=== PATIENT | female | born 1970 | race Caucasian/White ===

== ENCOUNTER 2017-02-28 12:01 | Emergency (ER) | payer SELFPAY ==
[~2017-02-28] VITALS: Ht 157.5 cm; Wt 104.3 kg
[~2017-02-28 12:01] MED LIST: ALBU.083IS IH; ALBU90OI INH; ALBU90OI6 INH; BENA20 PO; BENZ100A PO; CEPH500 PO; CITA20 PO; CLIN300 PO; CODACE30 PO; CODGUAEL PO; DIPH50 PO; ERYT333ERA PO; ESOM20 PO; GUAI600T33 PO; HYDACE5 PO; HYDACE5325 PO; HYDR1TAB94 PO; IBUP200; IBUP600 PO; MUPI2TO TOP; Monodox100 MG PO; NAPR500 PO; NAPR550 PO; ONDA4ODT MM; PERM5TC TOP; PRED20 PO; Prednisone20 MG PO; RXCLIN PO; RXCODACET PO; RXONDA4ODT MM; SULTRIDS PO; TRAM50 PO; [UNRECOGNIZED DRUG - OTHER]
[2017-02-28 16:32] LABS: BASOPHILS ABSOLUTE AUTO 0.06 K/mm3 (0.00-0.23); BASOPHILS PERCENT AUTO 1 % (0-2); EOSINOPHILS ABSOLUTE AUTO 0.14 K/mm3 (0.00-0.68); EOSINOPHILS PERCENT AUTO 1 % (0-6); Hematocrit 52.7 % (33.0-51.0); Hemoglobin 17.1 g/dL (11.5-16.0); IMMATURE GRAN ABSOLUTE AUTO 0.03 K/mm3 (0.00-0.10); IMMATURE GRAN PERCENT AUTO 0 % (0-1); LYMPHOCYTES ABSOLUTE AUTO 2.65 K/mm3 (0.84-5.20); LYMPHOCYTES PERCENT AUTO 27 % (21-46); MONOCYTES ABSOLUTE AUTO 0.45 K/mm3 (0.16-1.47); MONOCYTES PERCENT AUTO 5 % (4-13); Mean Corpuscular HGB 30.5 pg (26.0-34.0); Mean Corpuscular HGB Conc 32.4 g/dL (31.5-36.5); Mean Corpuscular Volume 94 fL (80-100); NEUTROPHILS ABSOLUTE AUTO 6.67 K/mm3 (1.96-9.15); NEUTROPHILS PERCENT AUTO 67 % (41-73); Platelet Count 229 K/mm3 (150-400); RDW Coefficient Variation 13.5 % (11.7-14.2); RDW Standard Deviation 46.7 fL (35.1-46.3); Red Blood Cell Count 5.61 M/mm3 (3.80-5.20)
[2017-02-28 17:06] LABS: Alanine Aminotransfer (ALT/SGP 21 U/L (12-78); Albumin, Blood 3.6 g/dL (3.4-5.0); Albumin/Globulin Ratio 1.1 (0.8-1.8); Alk Phos 81 U/L (50-136); Anion Gap 5 mmol/L (6-16); Aspartate Aminotrans (AST/SGOT 11 U/L (12-37); Bilirubin, Total 0.4 mg/dL (0.1-1.0); Blood Urea Nitrogen 6 mg/dL (8-24); Bun/Creatinine Ratio 9.3 (12.0-20.0); CO2, Blood 30 mmol/L (21-32); Calcium, Blood 9.4 mg/dL (8.5-10.1); Chloride, Blood 107 mmol/L (98-108); Creatinine, Blood 0.64 mg/dL (0.40-1.00); Globulin, Blood 3.2 g/dL (2.2-4.0); Glomerular Filtration Rate >60 (60-); Glucose, Blood 122 mg/dL (70-99); Potassium, Blood 3.7 mmol/L (3.5-5.5); Sodium, Blood 142 mmol/L (136-145); Total Protein, Blood 6.8 g/dL (6.4-8.2)
[2017-02-28 17:51] LABS: Bilirubin, Urine Neg (Neg); Blood, Urine Neg (Neg); Glucose Qualitative, Urine Neg (Neg); Ketones, Urine Neg (Neg); Leukocyte Esterase, Urine Neg (Neg); Nitrite, Urine Neg (Neg); Protein, Urine Neg (Neg); Urobilinogen, Urine NORM (Normal)
[2017-02-28 18:03] LABS: Appearance, Urine Clear (Clear); Color, Urine Pale Yellow (P-Yellow)
== END 2017-02-28 19:30 | disposition short-term general hospital (02) ==
LOC: ER 12:01
PROVIDERS: Physician Assistant
DX: K42.0 Umbilical hernia with obstruction, without gangrene (principal); Z88.5 Allergy status to narcotic agent; Z79.899 Other long term (current) drug therapy; F17.200 Nicotine dependence, unspecified, uncomplicated
CPT/HCPCS: 36415; 74176; 80053; 81003; 81025; 83690; 85025; 99285

== ENCOUNTER → 2017-08-16 | Outpatient (CLI) | payer SELFPAY | LOC: LAB SHORT 17:56 → LAB 17:56 | DX: R82.99 Other abnormal findings in urine (principal) | CPT/HCPCS: 87086 ==

== ENCOUNTER 2018-07-16 10:37 | Emergency (ER) | payer OTHER ==
[~2018-07-16] VITALS: Ht 160 cm; Wt 91.6 kg
[2018-07-16] MEDS ORDERED: HYDR1TAB94 PO (11:50)
[2018-07-16] MEDS ORDERED: IBUP800 PO (11:50)
[2018-07-16] MEDS ORDERED: DOCU100 PO (22:46)
== END 2018-07-16 11:51 | disposition home or self-care (01) ==
LOC: ER 10:37
DX: M16.0 Bilateral primary osteoarthritis of hip (principal); Z88.5 Allergy status to narcotic agent; Z79.899 Other long term (current) drug therapy; F17.200 Nicotine dependence, unspecified, uncomplicated
CPT/HCPCS: 73502; 99283-25

== ENCOUNTER 2018-07-16 14:43 | Inpatient (IN) | payer OTHER ==
[~2018-07-16] VITALS: Ht 157.5 cm; Wt 106.1 kg
[~2018-07-16 14:43] MED LIST changes: +IBUP800 PO
[2018-07-16 15:37] LABS: BASOPHILS ABSOLUTE AUTO 0.08 K/mm3 (0.00-0.23); BASOPHILS PERCENT AUTO 1 % (0-2); EOSINOPHILS ABSOLUTE AUTO 0.07 K/mm3 (0.00-0.68); EOSINOPHILS PERCENT AUTO 1 % (0-6); Hemoglobin 17.6 g/dL (11.5-16.0); IMMATURE GRAN ABSOLUTE AUTO 0.04 K/mm3 (0.00-0.10); IMMATURE GRAN PERCENT AUTO 0 % (0-1); LYMPHOCYTES ABSOLUTE AUTO 1.22 K/mm3 (0.84-5.20); LYMPHOCYTES PERCENT AUTO 11 % (21-46); MONOCYTES ABSOLUTE AUTO 0.37 K/mm3 (0.16-1.47); MONOCYTES PERCENT AUTO 3 % (4-13); Mean Corpuscular HGB 29.9 pg (26.0-34.0); Mean Corpuscular HGB Conc 31.7 g/dL (31.5-36.5); Mean Corpuscular Volume 94 fL (80-100); Mean Platelet Volume 10.1 fL (9.1-12.4); NEUTROPHILS ABSOLUTE AUTO 9.37 K/mm3 (1.96-9.15); NEUTROPHILS PERCENT AUTO 84 % (41-73); Platelet Count 246 K/mm3 (150-400); RDW Coefficient Variation 13.2 % (11.7-14.2); Red Blood Cell Count 5.89 M/mm3 (3.80-5.20); White Blood Cell Count 11.15 K/mm3 (4.00-11.30)
[2018-07-16 15:38] LABS: Hematocrit 55.6 % (33.0-51.0)
[2018-07-16 16:12] LABS: Alanine Aminotransfer (ALT/SGP 19 U/L (12-78); Albumin, Blood 3.6 g/dL (3.4-5.0); Albumin/Globulin Ratio 1.1 (0.8-1.8); Alk Phos 80 U/L (50-136); Anion Gap 5 mmol/L (6-16); Aspartate Aminotrans (AST/SGOT 16 U/L (12-37); Bilirubin, Total 0.6 mg/dL (0.1-1.0); Blood Urea Nitrogen 9 mg/dL (8-24); Bun/Creatinine Ratio 14.5 (12.0-20.0); CO2, Blood 30 mmol/L (21-32); Calcium, Blood 9.3 mg/dL (8.5-10.1); Chloride, Blood 103 mmol/L (98-108); Creatinine, Blood 0.62 mg/dL (0.40-1.00); Globulin, Blood 3.3 g/dL (2.2-4.0); Glomerular Filtration Rate >60 (60-); Glucose, Blood 116 mg/dL (70-99); Potassium, Blood 3.8 mmol/L (3.5-5.5); Sodium, Blood 138 mmol/L (136-145); Total Protein, Blood 6.9 g/dL (6.4-8.2)
[2018-07-16 16:14] LABS: Source, Urine Clean Catch
[2018-07-16 16:18] LABS: Bilirubin, Urine Neg (Neg); Blood, Urine 2+ (Neg); Glucose Qualitative, Urine Neg (Neg); Ketones, Urine 2+ (Neg); Leukocyte Esterase, Urine 1+ (Neg); Nitrite, Urine Neg (Neg); Protein, Urine 2+ (Neg); Urobilinogen, Urine NORM (Normal)
[2018-07-16 16:27] LABS: Color, Urine Yellow (P-Yellow)
[2018-07-16 16:28] LABS: Appearance, Urine Hazy (Clear)
[2018-07-16 16:42] LABS: Squamous Epithelial Cells Mod /hpf (Few)
[2018-07-16 16:44] LABS: Red Blood Cells, Urine 0-2 /hpf (0-2)
[2018-07-16 16:45] LABS: Bacteria Many /hpf
[2018-07-16 16:49] LABS: Mucus Mod (0-Heavy)
[2018-07-16 17:35] LABS: International Normalized Ratio 0.99; Prothrombin Time Results 10.5 Sec (9.7-11.5)
[2018-07-16 17:38] LABS: PCO2 Arterial 66.2 mmHg (35-45); PO2 Arterial 59.2 mmHg (80-100)
[2018-07-16] MEDS ORDERED: DOCU100 PO (22:46)
--- NOTE | 2018-07-17 02:43 | NUR ---
ASSUMED CARE OF PATIENT AT [facility] 2230 FROM [facility] ED RN. PATIENT ARRIVED TO UNIT VIA STRETCHER; TRANSFER WITH SBA FROM ED TO PCU STRETCHER. PATIENT COMPLAINED OF PAIN IN ABDOMEN; MEDICATED PER EMAR. ADMISSION COMPLETE. PATIENT AGREED TO NG TUBE PLACEMENT; 400 OF CLEAR LIQUID OUTPUT WITH BROWN SMALL CHUNKS NOTED; PATIENT COULD NOT TOLERATE; REMOVED WITHIN MINUTES; IVF INFUSING PER ORDER. PATIENT DENIES NUMBNESS, TINGLING, DIZZINESS AND NAUSEA; ORDER FOR N/V NG PLACEMENT; PATIENT REPORTS SHE CANNOT TOLERATE RIGHT NOW. PATIENT REPORTS SHE FELT THIS WAY BEFORE AND WITHIN A FEW DAYS SHE FELT BETTER. SR/ST ON HEART MONITOR. PATIENT ARRIVED TO UNIT WITH 2LPM VIA NC; BUMPED UP TO 6 DUE TO PATIENT SNORING AND DESATING. PATIENT REPORTS SHE WAS TOLD THAT SHE STOPS BREATHING WHEN SHE IS SLEEPING. PATIENT CURRENTLY RESTING IN BED; CALL LIGHT IN REACH; BED IN LOWEST POSISTION; WILL CONTINUE TO MONITOR AND ASSESS UNTIL END OF SHIFT.
[2018-07-17 03:27] LABS: BASOPHILS ABSOLUTE AUTO 0.05 K/mm3 (0.00-0.23); BASOPHILS PERCENT AUTO 1 % (0-2); EOSINOPHILS ABSOLUTE AUTO 0.05 K/mm3 (0.00-0.68); EOSINOPHILS PERCENT AUTO 1 % (0-6); Hemoglobin 17.5 g/dL (11.5-16.0); IMMATURE GRAN ABSOLUTE AUTO 0.02 K/mm3 (0.00-0.10); IMMATURE GRAN PERCENT AUTO 0 % (0-1); LYMPHOCYTES ABSOLUTE AUTO 1.73 K/mm3 (0.84-5.20); LYMPHOCYTES PERCENT AUTO 17 % (21-46); MONOCYTES ABSOLUTE AUTO 0.58 K/mm3 (0.16-1.47); MONOCYTES PERCENT AUTO 6 % (4-13); Mean Corpuscular HGB 30.5 pg (26.0-34.0); Mean Corpuscular HGB Conc 31.2 g/dL (31.5-36.5); Mean Platelet Volume 10.1 fL (9.1-12.4); NEUTROPHILS ABSOLUTE AUTO 7.81 K/mm3 (1.96-9.15); NEUTROPHILS PERCENT AUTO 76 % (41-73); Platelet Count 232 K/mm3 (150-400); RDW Coefficient Variation 13.2 % (11.7-14.2); RDW Standard Deviation 48.3 fL (35.1-46.3); Red Blood Cell Count 5.74 M/mm3 (3.80-5.20); White Blood Cell Count 10.24 K/mm3 (4.00-11.30)
[2018-07-17 03:33] LABS: PO2 Arterial 67.8 mmHg (80-100); pH Blood Arterial 7.27 (7.35-7.45)
[2018-07-17 03:33] LABS: Hematocrit 56.1 % (33.0-51.0); Mean Corpuscular Volume 98 fL (80-100)
[2018-07-17 03:43] LABS: Anion Gap 2 mmol/L (6-16); Blood Urea Nitrogen 10 mg/dL (8-24); Bun/Creatinine Ratio 16.4 (12.0-20.0); CO2, Blood 34 mmol/L (21-32); Calcium, Blood 8.7 mg/dL (8.5-10.1); Chloride, Blood 106 mmol/L (98-108); Creatinine, Blood 0.61 mg/dL (0.40-1.00); Glomerular Filtration Rate >60 (60-); Glucose, Blood 105 mg/dL (70-99); Potassium, Blood 4.2 mmol/L (3.5-5.5); Sodium, Blood 142 mmol/L (136-145)
--- NOTE | 2018-07-17 07:30 | NUR ---
ASSUMED CARE: PT RESTING QUIETLY, BIPAP IN PLACE. NO FURTHER NEEDS OR CONCERNS AT THIS TIME.
--- NOTE | 2018-07-17 11:39 | NUR ---
PT FELT SHE WAS HAVING AN ALLERGIC REACTION TO LAUNDRY DETERGENT THAT HOSPITAL USES. WELTS AND REDNESS NOTED WITH PT ITCHING. DISCUSSED WITH DR GUILLEN. SEE NEW ORDERS. ALSO STATES HE WANTS TO KEEP HER PCU STATUS DUE TO SEVERE SLEEP APNEA. PT SITTING UPRIGHT IN CHAIR AT THIS TIME. NO FURTHER NEEDS
--- NOTE | 2018-07-17 16:43 | NUR ---
Per admit trigger, I attempted to meet with Altagracia about an Advanced Directive for her. She was very sleppy and told me that she'd already been given the information packet. It was laying on her bedside table. I will remain available.
--- NOTE | 2018-07-17 18:59 | NUR ---
SHIFT SUMMARY: PT MEDICATED MULTIPLE TIMES FOR PAIN THIS SHIFT. ONE ASSIST TO BSC. PLAN IS FOR PT TO REMAIN PCU STATUS UNTIL SLEEP APNEA CAN BE ADDRESSED. TOLERATING CLEAR LIQUID DIET WELL, NO NAUSEA OR VOMITING NOTED THIS SHIFT.
--- NOTE | 2018-07-17 19:40 | NUR ---
ASSUMED CARE OF PT, BEDSIDE REPORT RECEIVED. PT IS ALERT AND ORIENTED, UP TO TOILET WITH STANDBY ASSIST FOR LINE MANAGEMENT. SHE REQUESTS TO BE UP IND IN ROOM HOWEVER IS AGREEABLE TO STANDBY ASSIST AFTER SAFETY CONCERNS ARE DISCUSSED RELATED TO WELDING MACHINE OPERATOR SUBMERGED ARC WIRE, OXYGEN TUBING, AND IV INFUSION. SHE DENIES CP/PRESSURE, DENIES SOB/DYSPNEA, DENIES N/V ALTHOUGH STATES THAT SHE HAS NOT HAD MORE THAN CLEAR LIQUIDS TODAY, SHE STATES THAT SHE IS PASSING FLATUS AND IS HOPEFUL FOR AN ADVANCED DIET IN AM. GAIT IS NOTED STEADY AND PT DENIES DIZZINESS/VERTIGO WITH AMBULATION. LUNGS CLEAR BILAT UPPER, DIM MID TO BASES, SATS MAINTAINING WITH OXYGEN AT 2 L/MIN VIA NC, RESP RATE 20, NO INCREASED WORK OF BREATHING IS NOTED. HRR, SINUS ON MONITOR, RATE 70S, PRESSURE MAINTAINING, PULSES FULL X 4 EXTREMITIES, BRISK CAP REFILL. HYPOACTIVE BOWEL TONES NOTED, ABD FIRM, PT REPORTS 8/10 PAIN, WILL ADMIN NORCO PER ORDERS.
[2018-07-18 04:22] LABS: Anion Gap 2 mmol/L (6-16); Blood Urea Nitrogen 7 mg/dL (8-24); Bun/Creatinine Ratio 14.1 (12.0-20.0); CO2, Blood 33 mmol/L (21-32); Calcium, Blood 8.7 mg/dL (8.5-10.1); Chloride, Blood 105 mmol/L (98-108); Free Thyroxine 1.04 ng/dL (0.70-1.60); Glomerular Filtration Rate >60 (60-); Glucose, Blood 134 mg/dL (70-99); Potassium, Blood 4.6 mmol/L (3.5-5.5); Sodium, Blood 140 mmol/L (136-145)
[2018-07-18 04:25] LABS: Triiodothyronine, Free 1.61 pg/mL (2.18-3.98)
[2018-07-18 05:29] LABS: PCO2 Arterial 64.3 mmHg (35-45); PO2 Arterial 66.1 mmHg (80-100); pH Blood Arterial 7.34 (7.35-7.45)
--- NOTE | 2018-07-18 06:20 | NUR ---
PT AWAKE FREQUENTLY THIS SHIFT, STATES THAT SHE IS HUNGRY, INCREASED PO FLUID INTAKE IS NOTED AND PT CITES HUNGER REASON FOR INTAKE. SHE REQUESTS PAIN MEDS FREQUENTLY EARLY IN SHIFT, NEAR MIDNOC PT WAS NOTED TO APPEAR TO BE ASLEEP AFTER USING CALL LIGHT, SHE STATED THAT SHE WAS INITIALLY REQUESTING PAIN MEDICATION HOWEVER NOTED THAT SHE "FORGOT TO BREATH" DISCUSSED NARCOTIC EFFECT ON RESPIRATORY DRIVE AND PT STATED THAT PAIN MEDS WERE "PROBABLY NOT A GOOD IDEA" ASSISTED PT TO POSITION OF COMFORT. OTHERWISE NO ACUTE CHANGES.
--- NOTE | 2018-07-18 09:00 | NUR ---
INITIAL ASSESSMENT PATIENT RESTING IN BED QUIETLY UPON ENTERING ROOM. PATIENT PLEASANT AND COOPERATIVE. PATIENT ALERT AND ORIENTED X 4, AFEBRILE. PATIENT SBA. PATIENT COMPLAINS THAT SHE HAS BEEN HAVING PAIN IN ABDOMEN. PATIENT SATTING 90% AND GREATER ON 4 L NC. PATIENT HAS MOIST, PRODUCTIVE COUGH- STATES THAT SHE HAS BEEN SWALLOWING THE PHLEGM. EXPIRATORY WHEEZE NOTED IN RUL. SONA CLEAR. LOWER LUNG LOBES DIMINISHED. PATIENT IN SR, HR 70S TO 80S. BP STABLE. ABDOMEN MODERATELY DISTENDED, TENDER, FIRM, WITH HYPOACTIVE BS. PATIENT STATES THAT SHE HAS BEEN HAVING FLATULENCE THIS AM. PATIENT DRINKING QUITE A LOT OF FLUID. PATIENT DENIES NAUSEA. PATIENT STATES THAT SHE "IS VERY HUNGRY". LAST BM REPORTED ON THE 7TH OF THIS MONTH. PATIENT VOIDING YELLOW COLORED URINE INTO TOILET. SKIN IS FLUSHED. RASH NOTED TO LOWER BACK. IVS FLUSHED AND SALINE LOCKED. BED LOW, CALL LIGHT IN REACH. WILL CONTINUE TO MONITOR PATIENT FREQUENTLY THROUGHOUT SHIFT.
--- NOTE | 2018-07-18 12:37 | NUR ---
PATIENT SITTING UP, WATCHING TV UPON ENTERING ROOM. PATIENT HAS NO COMPLAINTS. AFEBRILE. PATIENT DECREASED TO 2 L NC AND REMAINS SATTING 90% AND GREATER. WHEEZES NOTED T/O ALL LUNG LOBES. PATIENT REPORTS THAT SHE IS COUGHING UP A MODERATE AMOUNT OF THICK, WHITE, PHLEGM. PATIENT REMAINS IN SR, HR IN THE 90S. BP STABLE. NO OTHER ACUTE CHANGES TO NOTE ON AT THIS TIME. WILL CONTINUE TO MONITOR.
--- NOTE | 2018-07-18 16:01 | NUR ---
SHIFT SUMMARY PATIENT HAS REMAINED ALERT AND ORIENTED X 4, AFEBRILE. PATIENT HAS RECEIVED PRN PAIN MEDICATIONS FOR COMPLAINT OF PAIN IN ABDOMEN AND R HIP. PATIENT HAS BEEN GETTING AROUND IN ROOM WELL INDEPENDENTLY. PATIENT HAS BEEN SATTING WELL ON 2 L NC. PATIENT HAS REMAINED IN SR, HR MOSTLY 70S TO 90S. BP HAS BEEN STABLE. ABDOMEN HAS REMAINED MODERATELY DISTENDED, FIRM, AND TENDER. PATIENT STATES THAT IT FEELS LIKE HER HERNIA MESH THAT WAS PLACED AT [facility] IS "POKING HER FROM THE INSIDE". PATIENT DID NOT HAVE BM THIS SHIFT BUT REPORTS THAT SHE HAS BEEN HAVING FLATULENCE. PATIENT IS TOLERATING A REGULAR DIET AT THIS TIME. PATIENT VOIDING ADEQUATE AMOUNTS OF YELLOW COLORED URINE INTO TOILET. PATIENT RECEIVED PRN BENADRYL 3 TIMES THIS SHIFT FOR COMPLAINTS OF ITCHING ON HER LOWER BACK. PATIENT RECEIVED SHOWER THIS SHIFT. PATIENT IS TRANSFERRING TO MEDICAL FLOOR, ROOM 355. REPORT HAS BEEN GIVEN TO ASSUMING NURSE.
--- NOTE | 2018-07-18 17:55 | NUR ---
PT AOX4 AND COOPERATIVE OF CARE. MOVED UP TO MEDICAL FLOOR AROUND 1600. PT HAS 2L O2 RUNNING AND STATES SHE IS FEELING MUCH BETTER. PT TREATED FOR PAIN PER EMAR. INDEPENDENT NO DISTRESS NOTED.
--- NOTE | 2018-07-18 20:43 | NUR ---
07/18/181999 PT ON PHONE AND RN HERE TO RECHECK HIGH BP. PT STATES SHE IS TALKING WITH CO-WORKERS "ABOUT WORK". ALSO STATES SHE HAS A NEW DIAGNOSIS OF "SLEEP APNEA". UNFAMILIAR WITH THIS DX. RN WENT THROUGH BASIC DX,CAUSES, CPAP USE AND LONG-TERM DISABILITY. VERBALIZES UNDERSTANDING.
--- NOTE | 2018-07-18 20:48 | NUR ---
07/18/182015 PT C/O LEVEL "9" ABDOMEN/BACK PAIN. BECAME UPSET AT RN WHEN RN CLARIFIED THAT A "9" IS THE WORST PAIN "LIKE IF YOU WERE SHOT". "YOU CANNOT TELL ME WHAT I FEEL LIKE!" RN APOLOGIZED FOR THE MIS-COMMUNICATION AND THAT I DID NOT MEAN TO OFFEND HER. RN INFORMED CHENILLE MACHINE OPERATORLYDIA OF PT'S CONCERNS. MEDS GIVEN PER APR. CHENILLE MACHINE OPERATOR WILL SPEAK WITH HER.
--- NOTE | 2018-07-18 21:53 | NUR ---
07/18/18 Shoshana FREEMAN,APPLIANCE REPAIR TECHNICIAN IN SPEAKING WITH PT. LYDIA STATES SHE WOULD NOT RANK PAIN JUST THAT IT IS "BETTER".
--- NOTE | 2018-07-18 23:46 | NUR ---
07/18/18 2330 Requested benedryl and c/o slight nausea AND ZOFRAN GIVEN ALSO. NO OTHER COMPLAINTS
--- NOTE | 2018-07-19 07:30 | NUR ---
07/19/18 0600 SHIFT EVAL. RT OFFERED TO APPLY CPAP BUT PT DECLINED IT SHE "WAS NOT READY TO SLEEP". CONT. PULSE OXIMETER ON AND O2 FLUCTUATES AROUND 90-92 %. MEDICATED BY DIFFERENT RNS FOR C/O PAIN/ITCHING WITH "BETTER" HER RESPONSE. VITALS STABLE.
--- NOTE | 2018-07-19 09:00 | NUR ---
PT QUITE PLEASANT COOP A/O. DENIES PAIN AT THIS TIME. WILL FOLLOW. H/R REG, NO MURMER NOTED. NO TELE. LUNGS LIGHTLY WHEEZY T/O. ON 2L O2. RESP EASY, UNLABORED. BT HYPO. REPORTS PASSING GAS. STATES NO BM 5 DAYS . VOIDS PER BATHROOM. INDEPENDANT IN ROOM. BED IN LOW POSITION, CALL LITE IN REACH, CALLS APPROP. STATES HAD ISSUES WITH KEERTHI ANTONY. DISCUSSED. STATES SHE MADE PT FEEL LIKE WAS SEEKING PAIN MEDS. WILL PASS TO TOBACCO HANGER. PT PLEASANT COOP AT THIS TIME.
[2018-07-19] MEDS ORDERED: Cytomel5 MCG PO (11:18)
[2018-07-19] MEDS ORDERED: Senna8.6 MG PO (11:19)
--- NOTE | 2018-07-19 19:27 | NUR ---
PT QUITE PLEASANT TODAY. PAIN MANAGED WITH AVAIL MEDS. WAS PLANNING D/C TODAY, BUT UNABLE TO MAKE OXYGEN HAPPEN. NEEDS 2L ELIGIBILITY EXAMINER., 4L WHEN AMBULATING. BATCH FREEZER OPERATOR WORKING ON THIS FOR TOMORROW. DR GUILLEN NOTIFIED. PASSING GAS. DID WALK TO BATHROOM. NO BM YET. NO OTHER CONCERNS AT THIS TIME. BED IN LOW POSITION,C ALL LITE IN REACH. CALLS APPRP
--- NOTE | 2018-07-20 06:18 | NUR ---
SHIFT SUMMARY SLEPT WELL T/O NIGHT. AOX4. REPORTED NAUSEA LAST NIGHT, MEDICATED 1X W/ZOFRAN PER ORDERS. REPORTS PAIN IN R HIP & LLQ ABD MEDICATED 1X W/NORCO PER ORDERS. ABD IS TENDER & FIRM TO PALPATION IN LLQ. THIS SHE STATES "I HAVE THE WORST THROBBING HEADACHE," MEDICATED 1X W/TYLENOL PER ORDERS. LUNGS HAVE EXPIRATORY WHEEZES T/O, ON 2L NC & CPAP @HS. CONTINUOUS PULSE OX RANGING 80-87% ON CPAP W/2L O2 BLEED IN, NOTIFIED RESPIRATORY & THEY CHANGED ADJUSTED SETTINGS, SPO2 NOT INCREASING ABOVE 85% W/10L BLEED IN ON CPAP, NOTIFIED RESPIRATORY & THEY ADJUSTED SETTINGS ON CPAP AGAIN & PT TITRATED DOWN TO 6L O2 ON CPAP W/SPO2 @88-90%. REPORTS PASSING GAS, NO BM YET, GAVE COLACE/SENNA PER ORDERS & PRUNE JUICE. INDEPENDENT IN ROOM, DENIES DYSPNEA @REST. CALL LIGHT IN REACH.
--- NOTE | 2018-07-20 16:19 | NUR ---
DISCHARGE PT STATE NO SHORTNESS OF BREATH, BIOX 94% 2L. STATE PASSING GAS, NO BM YET. SHE STATE HOPEFUL TO GO HOME TODAY. DR GUILLEN IN TO SEE HER, SPEAK WITH [employer] REGARDING INSURANCE ISSUES R/T OXYGEN NEEDS CONTINUE OTHERWISE SHE MAY GO HOME WITH D/C ORDERS PLACED YESTERDAY. MOHINI, [employer] & [facility] REP ABLE TO SOLVE ISSUES. [facility] DELIVER PORTABLE O2 & PROVIDE INSTRUCT. IV SITE D/C INTACT. SCRIPS FAXED TO [facility]/REQUEST. D/C INSTRUCT PROVIDED. FAMILY MEMBER IN FOR TRANSPOTATION HOME. W/C ESCORT FROM HOSP PROVIDED. PT IS PLEASANT/APPRECIATIVE.
== END 2018-07-20 15:03 | disposition home or self-care (01) | DRG 388 ==
LOC: ER 14:43 → ERHOLD 18:47 → ICUE 18:47 → ICUW 07-17 19:00 → MEDS 07-18 16:10 → ENPENDDIS 07-19 08:29 → MEDS 07-20 15:03
PROVIDERS: Emergency Medicine; ADMIT Internal Medicine
PROC: 5A09457 Assistance with Respiratory Ventilation, 24-96 Consecutive Hours, Continuous Positive Airway Pressure (ICD-10-PCS; principal; 2018-07-17)
DX: K91.30 Postprocedural intestinal obstruction, unspecified as to partial versus complete (principal); J96.02 Acute respiratory failure with hypercapnia; J96.01 Acute respiratory failure with hypoxia; E66.2 Morbid (severe) obesity with alveolar hypoventilation; Z68.41 Body mass index [BMI] 40.0-44.9, adult; G47.30 Sleep apnea, unspecified; I10 Essential (primary) hypertension; D75.1 Secondary polycythemia; J44.9 Chronic obstructive pulmonary disease, unspecified; E03.9 Hypothyroidism, unspecified; E88.81 Metabolic syndrome and other insulin resistance; F17.210 Nicotine dependence, cigarettes, uncomplicated; T78.3XXA Angioneurotic edema, initial encounter; T46.4X5A Adverse effect of angiotensin-converting-enzyme inhibitors, initial encounter
CPT/HCPCS: 36415; 36600; 71045; 74176; 80048; 80053; 81001; 82803; 82947; 83605; 83690; 84439; 84443; 84481; 85025; 85610; 85730; 87081; 93005; 93010; 94010; 94640; 94660; 94664; 94760; 94761; 94762; 96361; 96374; 98960; 99285-25; 99407; A9270; A9270-GY; J1170; J1200; J1650; J2405; J2930; J3010; J7030; J7120

== ENCOUNTER 2018-09-19 12:49 | Emergency (ER) | payer OTHER ==
[~2018-09-19] VITALS: Ht 157.5 cm; Wt 108.4 kg
[~2018-09-19 12:49] MED LIST changes: +Cytomel5 MCG PO; +DOCU100 PO; +Senna8.6 MG PO
[2018-09-19] MEDS ORDERED: Benazepril HCl20 MG PO (13:06)
[2018-09-19] MEDS ORDERED: IBU800 MG PO (13:06)
[2018-09-19] MEDS ORDERED: Bactrim Ds Tab1 EACH PO (14:25)
== END 2018-09-19 14:34 | disposition home or self-care (01) ==
LOC: ER 12:49
DX: L72.9 Follicular cyst of the skin and subcutaneous tissue, unspecified (principal); Z88.5 Allergy status to narcotic agent; Z88.8 Allergy status to other drugs, medicaments and biological substances; Z79.899 Other long term (current) drug therapy; I10 Essential (primary) hypertension; J44.9 Chronic obstructive pulmonary disease, unspecified; E03.9 Hypothyroidism, unspecified; F17.200 Nicotine dependence, unspecified, uncomplicated
CPT/HCPCS: 10060; 99283-25

== ENCOUNTER 2018-12-12 18:26 | Inpatient (IN) | payer OTHER ==
[~2018-12-12] VITALS: Ht 157.5 cm; Wt 104.1 kg
[~2018-12-12 18:26] MED LIST changes: +Amoxicillin500 MG PO; +Bactrim Ds Tab1 EACH PO; +Benazepril HCl20 MG PO; +IBU800 MG PO
[2018-12-12 20:14] LABS: PCO2 Arterial 58.9 mmHg (35-45); PO2 Arterial 62.3 mmHg (80-100); pH Blood Arterial 7.35 (7.35-7.45)
[2018-12-12 20:24] LABS: BASOPHILS ABSOLUTE AUTO 0.06 K/mm3 (0.00-0.23); BASOPHILS PERCENT AUTO 1 % (0-2); EOSINOPHILS ABSOLUTE AUTO 0.12 K/mm3 (0.00-0.68); EOSINOPHILS PERCENT AUTO 1 % (0-6); Hematocrit 48.7 % (33.0-51.0); Hemoglobin 16.2 g/dL (11.5-16.0); IMMATURE GRAN ABSOLUTE AUTO 0.04 K/mm3 (0.00-0.10); IMMATURE GRAN PERCENT AUTO 0 % (0-1); LYMPHOCYTES ABSOLUTE AUTO 1.34 K/mm3 (0.84-5.20); LYMPHOCYTES PERCENT AUTO 11 % (21-46); MONOCYTES ABSOLUTE AUTO 0.69 K/mm3 (0.16-1.47); MONOCYTES PERCENT AUTO 6 % (4-13); Mean Corpuscular HGB Conc 33.3 g/dL (31.5-36.5); Mean Platelet Volume 10.3 fL (9.1-12.4); NEUTROPHILS PERCENT AUTO 81 % (41-73); Platelet Count 274 K/mm3 (150-400); RDW Coefficient Variation 11.9 % (11.7-14.2); RDW Standard Deviation 40.9 fL (35.1-46.3); Red Blood Cell Count 5.22 M/mm3 (3.80-5.20); White Blood Cell Count 11.85 K/mm3 (4.00-11.30)
[2018-12-12 20:25] LABS: Mean Corpuscular Volume 93 fL (80-100)
[2018-12-12 20:37] LABS: Alanine Aminotransfer (ALT/SGP 20 U/L (12-78); Albumin, Blood 3.3 g/dL (3.4-5.0); Albumin/Globulin Ratio 0.8 (0.8-1.8); Alk Phos 71 U/L (50-136); Anion Gap 5 mmol/L (6-16); Aspartate Aminotrans (AST/SGOT 15 U/L (12-37); Bilirubin, Total 0.5 mg/dL (0.1-1.0); Blood Urea Nitrogen 10 mg/dL (8-24); Bun/Creatinine Ratio 17.6 (12.0-20.0); CO2, Blood 29 mmol/L (21-32); Calcium, Blood 9.4 mg/dL (8.5-10.1); Chloride, Blood 102 mmol/L (98-108); Creatinine, Blood 0.57 mg/dL (0.40-1.00); Glomerular Filtration Rate >60 (60-); Glucose, Blood 124 mg/dL (70-99); Potassium, Blood 3.9 mmol/L (3.5-5.5); Sodium, Blood 136 mmol/L (136-145); Total Protein, Blood 7.3 g/dL (6.4-8.2)
[2018-12-12 23:05] LABS: Adenovirus Not Detected (NOT DETECT); Bordetella pertussis Not Detected (NOT DETECT); Chlamydophila pneumoniae Not Detected (NOT DETECT); Coronavirus 229E Not Detected (NOT DETECT); Coronavirus HKU1 Not Detected (NOT DETECT); Coronavirus NL63 Not Detected (NOT DETECT); Coronavirus OC43 Not Detected (NOT DETECT); Human Metapneumovirus Not Detected (NOT DETECT); Human Rhinovirus/Enterovirus Not Detected (NOT DETECT); Influenza A Not Detected (NOT DETECT); Influenza A/2009-H1 Not Detected (NOT DETECT); Influenza A/H1 Not Detected (NOT DETECT); Influenza A/H3 Not Detected (NOT DETECT); Influenza B Not Detected (NOT DETECT); Mycoplasma pneumoniae Not Detected (NOT DETECT); Parainfluenza Virus 1 Not Detected (NOT DETECT); Parainfluenza Virus 2 Not Detected (NOT DETECT); Parainfluenza Virus 3 Not Detected (NOT DETECT); Parainfluenza Virus 4 Not Detected (NOT DETECT); Respiratory Syncytial Virus Not Detected (NOT DETECT)
--- NOTE | 2018-12-13 02:43 | NUR ---
LOW BLOOD PRESSURE PT'S BP ON ADMISSION WAS NOTED TO BE 96/63, WHICH WAS SIGNIFICANTLY LOWER THAN THE BP'S TAKEN IN THE ED. ON RECHECK PT HAD SIMILAR BPS IN THE 80-90S SYSTOLICALLY. PT DENIED ANY LIGHTHEADEDNESS OR DIZZINESS AT THAT TIME, WITH NO NEW COMPLAINTS, AND IS FULLY A&O AT BASELINE. THE HOSPITALIST NIKA MARKHAM WAS CONSULTED AT 2300, AND A OT 1L BOLUS OF NS ORDERED AT 500 ML/HR. ON RECHECK AFTER THE BOLUS, PT'S BP WAS STILL IN THE 80-90S SYSTOLICALLY, VERIFIED WITH TWO MANUAL BP CHECKS. THE HOSPITALIST DR TO WAS CONSULTED AT 0200, AND ANOTHER 500 ML BOLUS ORDERED. WILL CONTINUE TO MONITOR.
[2018-12-13 04:51] LABS: BASOPHILS ABSOLUTE AUTO 0.03 K/mm3 (0.00-0.23); BASOPHILS PERCENT AUTO 0 % (0-2); EOSINOPHILS ABSOLUTE AUTO 0.01 K/mm3 (0.00-0.68); EOSINOPHILS PERCENT AUTO 0 % (0-6); Hematocrit 46.9 % (33.0-51.0); IMMATURE GRAN ABSOLUTE AUTO 0.04 K/mm3 (0.00-0.10); IMMATURE GRAN PERCENT AUTO 0 % (0-1); LYMPHOCYTES ABSOLUTE AUTO 0.95 K/mm3 (0.84-5.20); LYMPHOCYTES PERCENT AUTO 9 % (21-46); MONOCYTES ABSOLUTE AUTO 0.23 K/mm3 (0.16-1.47); MONOCYTES PERCENT AUTO 2 % (4-13); Mean Platelet Volume 10.2 fL (9.1-12.4); NEUTROPHILS ABSOLUTE AUTO 9.67 K/mm3 (1.96-9.15); NEUTROPHILS PERCENT AUTO 88 % (41-73); Platelet Count 266 K/mm3 (150-400); RDW Coefficient Variation 12.1 % (11.7-14.2); RDW Standard Deviation 43.6 fL (35.1-46.3); Red Blood Cell Count 4.84 M/mm3 (3.80-5.20); White Blood Cell Count 10.93 K/mm3 (4.00-11.30)
[2018-12-13 04:52] LABS: Mean Corpuscular Volume 97 fL (80-100)
[2018-12-13 05:09] LABS: Anion Gap 5 mmol/L (6-16); Blood Urea Nitrogen 14 mg/dL (8-24); CO2, Blood 28 mmol/L (21-32); Chloride, Blood 105 mmol/L (98-108); Glomerular Filtration Rate >60 (60-); Glucose, Blood 144 mg/dL (70-99); Potassium, Blood 4.7 mmol/L (3.5-5.5); Sodium, Blood 138 mmol/L (136-145)
--- NOTE | 2018-12-13 05:37 | NUR ---
SHIFT SUMMARY PT IS A 48 Y/O FEMALE, ADMITTED FOR HYPOXIA AND PNEUMONIA. SHE IS A&O X 4, AND A SBA IN THE ROOM DUE TO WEAKNESS R/T HER SOB. THE PT WAS MEDICATED ONCE FOR A HEADACHE AND GENERALIZED PAIN WITH PRN TYLENOL. SHE ALSO REPORTED DYSPNEA AND POSITIONAL SOB. PT IS ON 4L O2 VIA NC. O2 SATS REMAINED > 93%. THE PT HAD LOW BLOOD PRESSURES DURING THE NIGHT (SEE PREVIOUS NOTE). AFTER HER SECOND NS BOLUS, PT'S BP CAME UP TO 102/73. ALL OTHER VITALS STABLE. NO OTHER ACUTE CHANGES IN PT CONDITION NOTED DURING THE NIGHT. WILL CONTINUE TO MONITOR AND TREAT PER EMAR UNTIL HAND OFF TO DAY SHIFT RN.
--- NOTE | 2018-12-13 08:15 | NUR ---
PT PLEASANT COOP A/O. TALKATIVE. DENIES PIAN EXCEPT IN ABD FROM HERNIA MESH. LONG TIME PROBLEM. H/R REG, NO MURMER NOTED. PER TELE NSR AT 98. LUNGS WHEEZY AND COARSE T.O. ON 4L O2. RESP EASY, UNLABORED. BT X4 LAST BM YEST. VOIDS BATHROOM. INDEPENDANT IN ROOM. BED IN LOW POSITIOIN, CALL LITE IN REACH, CALLS APPROP
--- NOTE | 2018-12-13 19:26 | NUR ---
PT PLEASANT TODAY, PAIN MANAGED WITH AVAIL MEDS. HAS BEEN AMBULATORY TO BATHROOM TODAY. HAS BEEN TO VISIT FATHER IN ICU TWICE TODAY. NO OTHER CONCERNS AT THIS TIME. BED IN LOW POSITION,C ALL LITE IN REACH, CALLS APPROP
[2018-12-14 05:29] LABS: Albumin, Blood 2.8 g/dL (3.4-5.0); Anion Gap 7 mmol/L (6-16); Blood Urea Nitrogen 12 mg/dL (8-24); Bun/Creatinine Ratio 20.1 (12.0-20.0); CO2, Blood 28 mmol/L (21-32); Calcium, Blood 9.3 mg/dL (8.5-10.1); Chloride, Blood 106 mmol/L (98-108); Glomerular Filtration Rate >60 (60-); Glucose, Blood 217 mg/dL (70-99); Phosphorus, Blood 1.7 mg/dL (2.5-4.9); Potassium, Blood 4.7 mmol/L (3.5-5.5); Sodium, Blood 141 mmol/L (136-145)
--- NOTE | 2018-12-14 19:17 | NUR ---
SHIFT SUMMARY. A&OX4, INDEPENDENT IN ROOM. CONTINUES WITH 3L O2 NC, PT REPORTS BREATHING HAS IMPROVED. PT WITH INTERMITTENT NAUSEA WITHOUT VOMITTING. PT CONTINUES WITH CHRONIC PAIN TO ABD SECONDARY TO HRENIA THAT HAS BEEN MANAGED WELL WITH CURRENT ORDERS. NO NEW CHANGES OR CONCERNS.
[2018-12-15 04:48] LABS: BASOPHILS ABSOLUTE AUTO 0.02 K/mm3 (0.00-0.23); BASOPHILS PERCENT AUTO 0 % (0-2); EOSINOPHILS PERCENT AUTO 0 % (0-6); Hematocrit 40.7 % (33.0-51.0); IMMATURE GRAN ABSOLUTE AUTO 0.15 K/mm3 (0.00-0.10); IMMATURE GRAN PERCENT AUTO 1 % (0-1); LYMPHOCYTES ABSOLUTE AUTO 1.17 K/mm3 (0.84-5.20); LYMPHOCYTES PERCENT AUTO 9 % (21-46); MONOCYTES PERCENT AUTO 3 % (4-13); Mean Corpuscular HGB 31.6 pg (26.0-34.0); Mean Corpuscular HGB Conc 31.9 g/dL (31.5-36.5); Mean Corpuscular Volume 99 fL (80-100); NEUTROPHILS PERCENT AUTO 87 % (41-73); Platelet Count 277 K/mm3 (150-400); RDW Coefficient Variation 12.1 % (11.7-14.2); Red Blood Cell Count 4.12 M/mm3 (3.80-5.20); White Blood Cell Count 13.84 K/mm3 (4.00-11.30)
[2018-12-15 05:08] LABS: Albumin, Blood 2.9 g/dL (3.4-5.0); Anion Gap 4 mmol/L (6-16); Blood Urea Nitrogen 13 mg/dL (8-24); Bun/Creatinine Ratio 22.9 (12.0-20.0); CO2, Blood 33 mmol/L (21-32); Chloride, Blood 104 mmol/L (98-108); Creatinine, Blood 0.57 mg/dL (0.40-1.00); Glomerular Filtration Rate >60 (60-); Glucose, Blood 160 mg/dL (70-99); Phosphorus, Blood 3.4 mg/dL (2.5-4.9); Potassium, Blood 4.9 mmol/L (3.5-5.5); Sodium, Blood 141 mmol/L (136-145)
--- NOTE | 2018-12-15 05:14 | NUR ---
SELLING MANAGER SUMMARY NO ACUTE CHANGES THIS SHIFT. PT AAOX4 AND INDEPENDENT IN ROOM. PLEASANT AND COOPERATIVE. CONTINUES ON IV ABX AND SOLU MEDROL. ON 3L O2 VIA NC AND USES HOME CPAP AT NIGHT. TREATED FOR CHRONIC PAIN X1 WITH TYLENOL #3 WITH GOOD PAIN RELIEF. VSS, WILL CONTINUE TO MONITOR.
--- NOTE | 2018-12-15 18:40 | NUR ---
SHIFT SUMMARY: PATIENT AO TO PERSON, PLACE, TIME, AND SITUATION. COOPERATIVE WITH CARE ABLE TO MAKE NEEDS KNOWN. IND. WITH TRANSFERS. CONT OF B&B. NS INFUSING TO LEFT HAND PERIPHERAL IV. NO OBSERVABLE IV RELATED COMPLICATIONS TO INSERTION SITE. LUNGS DIMINISHED BILATERALLY W/EPIRATORY WHEEZE. PATIENT REPORTING 5-8/10 LUMBAR PAIN, WHICH SHE IS ATTRIBUTING TO CHANGE IN SLEEPING POSITION/BED. HOT PACK REFUSED, POSITIONING AND PRESCRIBED ORAL ANALGESICS EFFECTIVE FOR PAIN MANAGEMENT.
--- NOTE | 2018-12-16 05:34 | NUR ---
TEXTILE CLOTHING AND FOOTWEAR MECHANIC SUMMARY PT A/OX4. SLEPT THORUGHOUT THE NIGHT. PLEASANT AND FOLLOWS COMMANDS. SOB ON EXERSION. CURRENTLY ON 3 L O2. POSSIBLE DISCHARGE TODAY. NO ACUTE CHANGES. WILL CONTINUE TO MONITOR.
[2018-12-16] MEDS ORDERED: ACET325 PO (09:50)
[2018-12-16] MEDS ORDERED: TYLECOD3 PO (09:51)
[2018-12-16] MEDS ORDERED: ALBU2.5V5 INH (09:51)
[2018-12-16] MEDS ORDERED: GUAI600T33 PO (09:52)
[2018-12-16] MEDS ORDERED: FLUTICASONE-SA1 EAC2 INH (09:52)
[2018-12-16] MEDS ORDERED: AMOCLA875 PO (09:53)
[2018-12-16] MEDS ORDERED: Vsl#3 Capsule1 EACH PO (09:53)
[2018-12-16] MEDS ORDERED: ALBU3IS INH (09:53)
[2018-12-16] MEDS ORDERED: AZIT500 PO (09:54)
== END 2018-12-16 14:50 | disposition home or self-care (01) | DRG 871 ==
LOC: ER 18:26 → MEDS 20:35 → ENPENDDIS 12-16 09:29 → MEDS 12-16 14:50
PROVIDERS: Emergency Medicine; Internal Medicine; Nurse Practitioner Acute Care; ADMIT Internal Medicine
DX: A41.9 Sepsis, unspecified organism (principal); J96.21 Acute and chronic respiratory failure with hypoxia; J96.22 Acute and chronic respiratory failure with hypercapnia; J18.9 Pneumonia, unspecified organism; J44.1 Chronic obstructive pulmonary disease with (acute) exacerbation; J44.0 Chronic obstructive pulmonary disease with (acute) lower respiratory infection; Z68.41 Body mass index [BMI] 40.0-44.9, adult; R65.20 Severe sepsis without septic shock; G47.33 Obstructive sleep apnea (adult) (pediatric); E03.9 Hypothyroidism, unspecified; I10 Essential (primary) hypertension; E83.39 Other disorders of phosphorus metabolism; E66.01 Morbid (severe) obesity due to excess calories; M06.9 Rheumatoid arthritis, unspecified; F17.210 Nicotine dependence, cigarettes, uncomplicated; Z99.81 Dependence on supplemental oxygen; Z86.14 Personal history of Methicillin resistant Staphylococcus aureus infection
CPT/HCPCS: 0099U; 36415; 36600; 71045; 80048; 80053; 80069; 82803; 83605; 85025; 87040; 90686; 93005; 93010; 94010; 94640; 94644; 94660; 94664; 94667; 94668; 94760; 94762; 96365; 96375; 98960; 99285-25; 99407; A9270; J0456; J0696; J1650; J2405; J2930; J7030; J7040; J7050; J7060; Q0163

== ENCOUNTER 2019-03-16 14:44 | Emergency (ER) | payer OTHER ==
[~2019-03-16] VITALS: Ht 157.5 cm; Wt 103.9 kg
[~2019-03-16 14:44] MED LIST changes: +ACET325 PO; +ALBU2.5V5 INH; +ALBU3IS INH; +AMOCLA875 PO; +AZIT500 PO; +FLUTICASONE-SA1 EAC2 INH; +TYLECOD3 PO; +Vsl#3 Capsule1 EACH PO
[2019-03-16] MEDS ORDERED: Bactrim 400-801 EACH PO (17:35)
[2019-03-16] MEDS ORDERED: TYLECOD3 PO (17:35)
== END 2019-03-16 17:40 | disposition home or self-care (01) ==
LOC: ER 14:44
DX: H66.92 Otitis media, unspecified, left ear (principal); H72.92 Unspecified perforation of tympanic membrane, left ear; F17.200 Nicotine dependence, unspecified, uncomplicated; Z88.5 Allergy status to narcotic agent; Z79.899 Other long term (current) drug therapy
CPT/HCPCS: 99282

== ENCOUNTER 2019-06-14 19:31 | Inpatient (IN) | payer OTHER ==
[~2019-06-14] VITALS: Ht 157.5 cm; Wt 106.5 kg
[~2019-06-14 19:31] MED LIST changes: +Bactrim 400-801 EACH PO
[2019-06-14 20:12] LABS: BASOPHILS ABSOLUTE AUTO 0.11 K/mm3 (0.00-0.23); BASOPHILS PERCENT AUTO 1 % (0-2); EOSINOPHILS ABSOLUTE AUTO 0.13 K/mm3 (0.00-0.68); EOSINOPHILS PERCENT AUTO 1 % (0-6); Hematocrit 53.2 % (33.0-51.0); Hemoglobin 17.4 g/dL (11.5-16.0); IMMATURE GRAN ABSOLUTE AUTO 0.12 K/mm3 (0.00-0.10); IMMATURE GRAN PERCENT AUTO 1 % (0-1); LYMPHOCYTES ABSOLUTE AUTO 2.24 K/mm3 (0.84-5.20); LYMPHOCYTES PERCENT AUTO 11 % (21-46); MONOCYTES ABSOLUTE AUTO 0.92 K/mm3 (0.16-1.47); MONOCYTES PERCENT AUTO 5 % (4-13); Mean Corpuscular HGB 30.9 pg (26.0-34.0); Mean Corpuscular HGB Conc 32.7 g/dL (31.5-36.5); Mean Corpuscular Volume 95 fL (80-100); Mean Platelet Volume 10.3 fL (9.1-12.4); NEUTROPHILS ABSOLUTE AUTO 16.16 K/mm3 (1.96-9.15); NEUTROPHILS PERCENT AUTO 82 % (41-73); Platelet Count 354 K/mm3 (150-400); RDW Coefficient Variation 12.8 % (11.7-14.2); RDW Standard Deviation 44.9 fL (35.1-46.3); Red Blood Cell Count 5.63 M/mm3 (3.80-5.20); White Blood Cell Count 19.68 K/mm3 (4.00-11.30)
[2019-06-14 20:33] LABS: Alanine Aminotransfer (ALT/SGP 22 U/L (12-78); Albumin, Blood 3.8 g/dL (3.4-5.0); Albumin/Globulin Ratio 1.1 (0.8-1.8); Alk Phos 85 U/L (50-136); Anion Gap 10 mmol/L (6-16); Aspartate Aminotrans (AST/SGOT 14 U/L (12-37); Bilirubin, Total 0.8 mg/dL (0.1-1.0); Blood Urea Nitrogen 6 mg/dL (8-24); Bun/Creatinine Ratio 9.1 (12.0-20.0); CO2, Blood 27 mmol/L (21-32); Calcium, Blood 10.2 mg/dL (8.5-10.1); Chloride, Blood 104 mmol/L (98-108); Creatinine, Blood 0.66 mg/dL (0.40-1.00); Globulin, Blood 3.5 g/dL (2.2-4.0); Glomerular Filtration Rate >60 (60-); Glucose, Blood 174 mg/dL (70-99); Potassium, Blood 4.1 mmol/L (3.5-5.5); Sodium, Blood 141 mmol/L (136-145); Total Protein, Blood 7.3 g/dL (6.4-8.2)
[2019-06-14 23:52] LABS: International Normalized Ratio 0.98; Prothrombin Time Results 10.5 Sec (9.7-11.5)
[2019-06-15 01:41] LABS: Hemoglobin 18.9 g/dL (11.5-16.0); Mean Corpuscular HGB 30.8 pg (26.0-34.0); Mean Corpuscular HGB Conc 32.5 g/dL (31.5-36.5); Mean Corpuscular Volume 95 fL (80-100); Mean Platelet Volume 9.9 fL (9.1-12.4); Platelet Count 391 K/mm3 (150-400); RDW Coefficient Variation 12.9 % (11.7-14.2); RDW Standard Deviation 45.1 fL (35.1-46.3); Red Blood Cell Count 6.14 M/mm3 (3.80-5.20)
[2019-06-15 01:46] LABS: Hematocrit 58.1 % (33.0-51.0)
[2019-06-15 01:58] LABS: Anion Gap 9 mmol/L (6-16); Blood Urea Nitrogen 12 mg/dL (8-24); Bun/Creatinine Ratio 15.7 (12.0-20.0); CO2, Blood 25 mmol/L (21-32); Calcium, Blood 9.9 mg/dL (8.5-10.1); Chloride, Blood 105 mmol/L (98-108); Creatinine, Blood 0.76 mg/dL (0.40-1.00); Glomerular Filtration Rate >60 (60-); Glucose, Blood 225 mg/dL (70-99); Potassium, Blood 4.5 mmol/L (3.5-5.5); Sodium, Blood 139 mmol/L (136-145)
[2019-06-15 02:57] LABS: BAND PERCENT MAN 13 % (0-8); BASOPHILS PERCENT MAN 0 % (0-2); EOSINOPHILS PERCENT MAN 0 % (0-6); LYMPHOCYTES ABSOLUTE MAN 0.89 K/mm3 (0.84-5.20); LYMPHOCYTES PERCENT MAN 3 % (21-46); METAMYELOCYTE ABSOLUTE MAN 0.29 K/mm3 (0.00-0.00); METAMYELOCYTE PERCENT MAN 1 % (0-0); MONOCYTES ABSOLUTE MAN 1.48 K/mm3 (0.16-1.47); MONOCYTES PERCENT MAN 5 % (4-13); NEUTROPHILS ABSOLUTE MAN 27.02 K/mm3 (1.96-9.15); SEG NEUTROPHILS PERCENT MAN 78 % (41-73); TOTAL CELLS COUNTED 100
[2019-06-15 09:20] LABS: Source, Urine Catheter
[2019-06-15 09:36] LABS: Bilirubin, Urine Neg (Neg); Blood, Urine 1+ (Neg); Glucose Qualitative, Urine 1+ (Neg); Ketones, Urine 2+ (Neg); Leukocyte Esterase, Urine 1+ (Neg); Nitrite, Urine Pos (Neg); Protein, Urine 2+ (Neg); Urobilinogen, Urine 2+ (Normal)
[2019-06-15 10:15] LABS: Appearance, Urine Hazy (Clear); Color, Urine Yellow (P-Yellow)
[2019-06-15 10:18] LABS: Bacteria Mod /hpf; Red Blood Cells, Urine 0-2 /hpf (0-2); Squamous Epithelial Cells Mod /hpf (Few)
[2019-06-15 10:19] LABS: Calcium Oxalate Crystals Many /hpf
== END 2019-06-15 11:37 | disposition short-term general hospital (02) | DRG 394 ==
LOC: ER 19:31 → SURS 19:32 → PCU 06-15 04:26
PROVIDERS: Emergency Medicine; Internal Medicine; Nurse Practitioner Acute Care; ADMIT Family Medicine
DX: K43.6 Other and unspecified ventral hernia with obstruction, without gangrene (principal); J96.11 Chronic respiratory failure with hypoxia; E66.2 Morbid (severe) obesity with alveolar hypoventilation; Z68.41 Body mass index [BMI] 40.0-44.9, adult; J44.9 Chronic obstructive pulmonary disease, unspecified; I10 Essential (primary) hypertension; E03.9 Hypothyroidism, unspecified; M06.9 Rheumatoid arthritis, unspecified; F17.210 Nicotine dependence, cigarettes, uncomplicated; E88.81 Metabolic syndrome and other insulin resistance; Z86.14 Personal history of Methicillin resistant Staphylococcus aureus infection; Z88.5 Allergy status to narcotic agent; Z79.1 Long term (current) use of non-steroidal anti-inflammatories (NSAID); Z79.891 Long term (current) use of opiate analgesic; Z79.51 Long term (current) use of inhaled steroids; Z79.899 Other long term (current) drug therapy
CPT/HCPCS: 36415; 71045; 74176; 80048; 80053; 81001; 83605; 83735; 85025; 85610; 85730; 87086; 93005; 93010; 96361; 96365; 96367; 96375; 96376; 99285-25; C9113; G0378; J0696; J0780; J1170; J2405; J2543; J2765; J3010; J7030; J7120